=== PATIENT | male | born 1960 | race Caucasian/White ===

== ENCOUNTER 2024-03-15 15:33 | Emergency (ER) | payer OTHER, SELFPAY ==
[2024-03-15 15:39] VITALS: BP 129/90
--- NOTE | 2024-03-15 16:36 | ED.GENMED ---
History of Present Illness
General
Chief Complaint: Skin Surface Trauma
Source: patient
Exam Limitations: none
Time Seen by Provider: 03/15/24 16:15
Nursing documentation reviewed up to this point in time: agreed with
Travel History
Have you had any contact with someone who has COVID-19?: No
Do you have any symptoms of coronavirus? Fever > 100 degrees, chills, cough, shortness of breath, sore throat, loss of taste or smell, muscle aches, or headache?: No
History of Present Illness
History of Present Illness:
63-year-old male [id number] with a history of hyperlipidemia presents with a right palmar hand laceration after an injury with a table saw. Patient sayS he was cut by a piece of wood that shot out of the saw. he has a deep palmar
laceration, bleeding controlled
no obvious retained fb
tetanus not nkown
no numbness/tingling/weaknses.
Past History
Past History
ED Past Medical History: GERD and Hypercholesterolemia
Social History
Tobacco: Non-smoker
Personal:
Employment: Employed
Review of Systems
Review of Systems
Allergies reviewed?: Yes
All Other Systems: Not applicable
Phy Exam
Physical Exam
Physical Exam:
GENERAL: Alert , in no apparent distress, comfortable at rest
HEAD: NCAT
CV: 2+ radial pulse, cap refill intact to fingers
NEUROLOGICAL: Alert and oriented, no focal neuro deficits, , 5/5 strength, sensation intact,
SKIN: Warm and dry, irregualary shaped laceration 4 cm right palm thenar eminence region
no bleeding
MUSCULOSKELETAL: full rom of the hand/fingers
no deformities
PSYCH: Normal and appropriate interaction.
Course
Orders/Labs/Results
Orders:
Orders
03/15/24 16:34
Ibuprofen [Motrin] 600 mg PO NOW STA
Tetanus/Diphth/Acelpertussis [Adacel] 0.5 ml IM .ONCE ONE
CR Hand - Right Min 3 Views Urgent
Comment:
Reason For Exam: right hand laceration from wood
Vital Signs
Initial and Last Documented VS:
Initial Vital Signs
Temp Pulse Resp BP Pulse Ox
99.0 F 90 18 129/90 96
03/15/24 15:39 03/15/24 15:39 03/15/24 15:39 03/15/24 15:39 03/15/24 15:39
Last Documented Vital Signs
Temp Pulse Resp BP Pulse Ox
99.0 F 72 18 124/78 95
03/15/24 15:39 03/15/24 18:22 03/15/24 18:22 03/15/24 18:22 03/15/24 18:22
Procedures
Laceration Closure
Right Posterior Hand:
Status of Wound: clean
Size of Wound in cm: 4
Description of Wound Edges: sharp and flap-well vascularized
Preparation: cleaned with saline
Anesthesia: 1% Lidocaine with epi
Revision/Debridement: routine- no revision
Wound exploration: explored to base- no FB
Type of Closure: single layer closure
Skin Closure Material: 5-0 nylon
Number of sutures: 4
MDM/Problems Addressed
Differential Diagnosis Includes:
laceration, retained fb, open fx
MDM/Problems Addressed:
63 y/o M with R hand laceration from a piece of wood when he was using a table saw
no deficits
no active bleeding
full rom of the hand
normal sensation
tetanus updated
wound irrigated, clsed with sutures
bacitracin dressing
wound care instructions given
*Critical Care Note
Total Time (30-74mins, 75-104mins- exclusive of procedures): Not Applicable
ED Attending Note
-
Portions of this chart may have been created with voice recognition software.� Occasional wrong word or��sound alike� substitutions may have occurred due to the inherent limitations of voice recognition software.
Discharge Plan
Departure
Patient Disposition: Home (Routine Discharge)
Date of Disposition: 03/15/24
Time of Disposition: 18:07
Patient with high blood pressure during this ER visit?: No
Discharge Problem:
Laceration of hand
Instructions: Laceration Repair With Stitches (DC)
Prescriptions:
No Action
prednisone 50 MG tablet
50 mg PO DAILY Qty: 5 0RF
Referrals:
Everett Braxton MD [Family Provider] - Follow up in 2-3 days
Activity Restrictions/Additional Instructions:
KEEP THE WOUND CLEAN AND DRY FOR 24 HOURS
AFTER THAT YOU CAN GET IT WET IN THE BATH/SHOWER ONCE A DAY AND MAKE SURE IT IS CLEAN AND THERE IS NO DRIED BLOOD ON THE STITCHES
APPLY NEOSPORIN AND A BANDAID
THE STITCHES NEED TO BE REMOVED IN ABOUT 7-10 DAYS, SEE YOUR DOCTOR FOR THIS.
THE LAST DAY BEFORE STITCHES OUT, NO OINTMENT, LEAVE OPEN TO AIR
WATCH FOR SIGNS OF INFECTION AND RETURN NEEDED FOR PAIN, SWELLING, REDNESS, DRAINAGE, BLEEDING.
MOTRIN NEEDED FOR PAIN.
Interventions
Interventions:
*Risk Screen - Suicide Last Done: 03/15/24 15:39
*General Assessment Last Done: 03/15/24 15:39
*Neglect/Abuse Screening Last Done: 03/15/24 15:39
ED- Fall Risk Assessment Last Done: 03/15/24 16:18
*ED COVID-19 Vaccine History Last Done: 03/15/24 15:39
*Nursing Disposition Last Done: 03/15/24 18:22
ED-Skin Assessment Last Done: 03/15/24 16:18
Discharge Date and Time
Discharge Date/Time: 03/15/24 18:10
Print Language: DJIBOUTIAN
[2024-03-15] MEDS: ADACEL 0.5 ML IM (17:03)
[2024-03-15] MEDS: MOTRIN 600 MG PO (17:04)
[2024-03-15 18:22] VITALS: BP 124/78
--- NOTE | 2024-03-15 18:22 | EDRN ---
Reviewed discharge instructions with patient. Verbalized understanding. Ambulated with steady gait to the lobby.
== END 2024-03-15 18:10 | disposition home or self-care (01) ==
LOC: EMR 15:33
PROVIDERS: EMERGENCY PHYSICIAN Emergency Medicine; FAMILY PHYSICIAN Family Medicine
DX: S61.411A Laceration without foreign body of right hand, initial encounter (principal); W27.0XXA Contact with workbench tool, initial encounter; E78.00 Pure hypercholesterolemia, unspecified; K21.9 Gastro-esophageal reflux disease without esophagitis
CPT/HCPCS: 99283; 90471; 12002; 73130; 90715

== ENCOUNTER 2024-12-31 06:24 | Day surgery (SDC) | payer OTHER, SELFPAY | END 2024-12-31 14:22 | disposition home or self-care (01) | LOC: GI 06:24 | PROVIDERS: ATTENDING PHYSICIAN Internal Medicine | DX: B37.81 Candidal esophagitis (principal); K21.00 Gastro-esophageal reflux disease with esophagitis, without bleeding; K44.9 Diaphragmatic hernia without obstruction or gangrene; K31.7 Polyp of stomach and duodenum; K31.89 Other diseases of stomach and duodenum | CPT/HCPCS: 43239; 43251; 88305; 88342 ==